=== PATIENT | female | born 1970 | race Two or more races ===

== ENCOUNTER 2019-11-10 08:29 | Day surgery (SDC) | payer OTHER ==
[~2019-11-10 08:29] MED LIST: SYNTHROID88 MCG PO; URSO250 MG PO
[2019-11-10] MEDS ORDERED: MORGIDOX100 MG PO (14:07)
[2019-11-10] MEDS ORDERED: tylenol #3 PO (14:07)
== END 2019-11-10 18:15 | disposition home or self-care (01) ==
LOC: CIR.AMB 08:29
PROVIDERS: ATTEND Obstetrics & Gynecology
DX: D25.0 Submucous leiomyoma of uterus (principal); N84.0 Polyp of corpus uteri; Z20.828 Contact with and (suspected) exposure to other viral communicable diseases